=== PATIENT | female | born 1985 | race Asian ===

== ENCOUNTER → 2018-05-07 | Outpatient (CLI) | payer BC | LOC: MC.RAD 13:46 | DX: N63.20 Unspecified lump in the left breast, unspecified quadrant (principal) ==

== ENCOUNTER 2021-09-26 07:53 | Inpatient (IN) | payer BC ==
[~2021-09-26] VITALS: Ht 162.6 cm; Wt 88.2 kg
[2021-09-26] VITALS (31 sets, daily range): BP systolic 120–166; BP diastolic 63–96; PULSE 66–109; TEMP 98–98.9
--- NOTE | 2021-09-26 07:40 | NUR ---
Pt arrived on unit ambulatory and with complaints of possible ROM. Pt reports occasional contractions and reports normal movement. EFM and toco monitors started. Vital signs WNL. SVE by this RN 3-/-2 with positive amnio-trace. Spoke with Dr. Woodall. See physician notification for details. Plan of care reviewed with pt and at the bedside.
[2021-09-26] MEDS ORDERED: NATURAL IRON65 MG (07:57)
[2021-09-26] MEDS ORDERED: OSCAL 500 TAB500 MG (07:57)
[2021-09-26] MEDS ORDERED: PRENATAL (07:57)
[2021-09-26 09:03] LABS: BASO % 0.2 % (0.0-2.0); EOS # 0.1 K/mm3 (0.0-0.7); GRAN # 4.6 K/mm3 (1.4-6.5); GRAN % 55.4 % (42.2-75.2); LYMPH % 36.2 % (20.0-51.0); MEAN CELL VOLUME 81 fl (80.0-100.0); MEAN CORPUSCULAR HEMOGLOBIN 27 pg (27-31); MEAN CORPUSCULAR HGB CONC 33 g/dl (33.0-37.0); MEAN PLATELET VOLUME 10.7 fl (7.4-10.4); MONO # 0.6 K/mm3 (0.1-0.6); MONO % 6.8 % (1.7-9.3); PLATELET COUNT 276 K/mm3 (130-400); REDCELL DISTRIBUTION WIDTH-CV 13.8 % (11.5-14.5)
[2021-09-26 09:08] LABS: HEMATOCRIT 33.3 % (37.0-47.0)
[2021-09-26 09:09] LABS: BILIRUBIN,TOTAL 0.3 mg/dL (0.2-1.2); CALCIUM 8.9 mg/dL (8.4-10.2); CREATININE, serum 0.66 mg/dL (0.57-1.11); POTASSIUM 3.4 mmol/L (3.5-4.5); TOTAL PROTEIN 6.6 gm/dL (6.2-8.1)
[2021-09-26 10:09] LABS: COLLECTION METHOD CLEAN CATCH
[2021-09-26 10:29] LABS: MUCOUS Present (NOT PRESENT); PH 7 (5-8); SQUAMOUS EPITHELIAL 0-2 /hpf (0-10); URINE APPEARANCE Clear (CLEAR/HAZY); URINE BACTERIA None Seen /hpf (NONE SEEN); URINE BILIRUBIN Negative (NEGATIVE); URINE BLOOD 3+ (NEGATIVE); URINE COLOR Yellow (YELLOW); URINE GLUCOSE Negative (NEGATIVE); URINE KETONE Negative (NEGATIVE); URINE LEUKOCYTE ESTERASE Negative (NEGATIVE); URINE NITRATE Negative (NEGATIVE); URINE PROTEIN(semi-quant) Negative (NEGATIVE); URINE RBC >50 /hpf (0-2); URINE UROBILINOGEN Negative (NEGATIVE)
--- NOTE | 2021-09-26 10:57 | NUR ---
1057- Pt sitting up on the edge of the bed for epidural placement. JULIO Paul at the bedside. Time out done. 1058- SPO2 monitor started. 1105- Single shot done per JULIO Paul. See anesthesia records for details. 1110- Assisted pt back to supine with left wedge position. EFM adjusted.
--- NOTE | 2021-09-26 12:28 | NUR ---
Dr. Woodall at the bedside and pushing with pt.
--- NOTE | 2021-09-26 13:06 | NUR ---
Dr. Woodall back at the bedside for evaluation while pushing.
--- NOTE | 2021-09-26 13:15 | NUR ---
Unable to determine FHR baseline. RN at the bedside and adjusting EFM.
--- NOTE | 2021-09-26 13:17 | NUR ---
Pushing stopped. Pt resting.
--- NOTE | 2021-09-26 15:00 | NUR ---
Unable to determine FHR baseline. RN at the bedside and adjusting EFM.
--- NOTE | 2021-09-26 15:03 | NUR ---
1503- Dr. Woodall at the bedside and discussing the use of vacuum assisted delivery. 1505- Straight cath done per Dr. Woodall. 1509- Vacuum applied per Dr. Woodall and pushing. 1511- Pushing with vacuum in place and traction applied. 1515- Pushing with vacuum in place and traction applied. Vacuum assisted delivery of viable male . Henderson placed on mom's abdomen. Care of the given to Nursery RN at the bedside. 1520- of placenta. Pitocin started at 333ml/hr per order and protocol. Fundus firm and lochia WNL.
--- NOTE | 2021-09-26 18:30 | NUR ---
Roles on the unit. Vital signs with BP slightly elevated reviewed. No new orders at this time.
--- NOTE | 2021-09-26 20:14 | NUR ---
1999 PT CALLED OUT STATING SHE HAD A HEADACHE AND STARS IN HER VISION AND NEEDED BLOOD PRESSURE CHECK. BP 142/96, PULSE 100. PT STATES SHE HAS BEEN DRINKING PLENTY OF WATER AND IS RELAXED. THIS RN VISUALIZED CUFF WHILE BP BEING TAKEN. TURNED LIGHTS OFF IN ROOM, ENCOURAGED FLUIDS, GAVE MOTRIN AND TOLD PT TO CALL IF HEADACHE DOES NOT GO AWAY. WILL CONTINUE TO MONITOR
[2021-09-27 03:04] VITALS: BP 150/94; PULSE 80; TEMP 98
[2021-09-27 07:15] VITALS: BP 142/93; PULSE 84; TEMP 97.9
--- NOTE | 2021-09-27 10:47 | NUR ---
Initial visit; Parents thanked Sales Relationship Manager for offering congratulations and God's blessings for the of their son. Sales Relationship Manager thanked family for choosing [place].
[2021-09-27 12:33] VITALS: BP 150/86; PULSE 95; TEMP 98.2
[2021-09-27 17:26] VITALS: BP 140/80; PULSE 97; TEMP 98.1
--- NOTE | 2021-09-27 18:34 | NUR ---
Report received. Plan of care reviewed. Spouse and mother in room.
[2021-09-27 19:40] VITALS: BP 138/86; PULSE 121; TEMP 98.6
[2021-09-27 20:40] VITALS: PULSE 100
[2021-09-28 07:25] VITALS: BP 132/83; PULSE 90; TEMP 98.5
[2021-09-28] MEDS ORDERED: PROCARDIA XL 3030 MG PO (08:15)
[2021-09-28] MEDS ORDERED: IBU600 MG PO (08:15)
== END 2021-09-28 17:20 | disposition home or self-care (01) | DRG 807 ==
LOC: LDRO 07:53 → OB 08:16 → LDR 08:16 → OB 09-27 06:30 → LDRO 10-04 07:43
PROVIDERS: ADMIT Obstetrics & Gynecology
PROC: 10D07Z6 Extraction of Products of Conception, Vacuum, Via Natural or Artificial Opening (ICD-10-PCS; principal; 2021-09-26)
PROC: 0KQM0ZZ Repair Perineum Muscle, Open Approach (ICD-10-PCS; 2021-09-26)
PROC: 10907ZC Drainage of Amniotic Fluid, Therapeutic from Products of Conception, Via Natural or Artificial Opening (ICD-10-PCS; 2021-09-26)
PROC: 0UQGXZZ Repair Vagina, External Approach (ICD-10-PCS; 2021-09-26)
PROC: 0UQKXZZ Repair Hymen, External Approach (ICD-10-PCS; 2021-09-26)
DX: O13.4 Gestational [pregnancy-induced] hypertension without significant proteinuria, complicating childbirth (principal); Z37.0 Single live birth; O99.02 Anemia complicating childbirth; D64.9 Anemia, unspecified; O69.81X0 Labor and delivery complicated by cord around neck, without compression, not applicable or unspecified; O70.1 Second degree perineal laceration during delivery; Z3A.38 38 weeks gestation of pregnancy; Z23 Encounter for immunization
CPT/HCPCS: J2590; J7120

== ENCOUNTER → 2023-09-06 | Outpatient (CLI) | payer BC ==
[~2023-09-06] MED LIST: IBU600 MG PO; NATURAL IRON65 MG; OSCAL 500 TAB500 MG; PRENATAL; PROCARDIA XL 3030 MG PO
== END ==
LOC: MC.RAD 08:25
DX: N63.10 Unspecified lump in the right breast, unspecified quadrant (principal); N63.20 Unspecified lump in the left breast, unspecified quadrant